=== PATIENT | male | born 1980 | race Two or more races ===

== ENCOUNTER 2017-01-08 12:44 | Emergency (ER) | payer SELFPAY ==
[~2017-01-08] VITALS: Ht 175.3 cm; Wt 78.0 kg
[2017-01-08 13:13] VITALS: BP 99/54
== END 2017-01-08 14:40 | disposition home or self-care (01) ==
LOC: ER 12:46
DX: T78.40XA Allergy, unspecified, initial encounter (principal); Z88.0 Allergy status to penicillin